=== PATIENT | female | born 1930 | race Caucasian/White ===

== ENCOUNTER → 2017-02-10 | Outpatient (CLI) | payer MEDICARE, OTHER ==
[~2017-02-10] MED LIST: CALC-652 PO; CIPR-151 PO; CITA-50 PO; FERR1TAB86 PO; FURO40SO2 PO; HYDR-783 PO; LEVO25TA51 PO; METO100T93 PO; POTA10TA93 PO; PRED-214 PO; SPIR25TA69 PO; VITAMIN D PO; WARF1TAB PO
[2017-02-10 18:09] LABS: BLOOD, URINE 1+ (NEGATIVE); COLOR,URINE YELLOW (YELLOW); LEUKOCYTE ESTERASE ,URINE NEGATIVE (NEGATIVE); NITRITE,URINE NEGATIVE (NEGATIVE); UROBILINOGEN,URINE 0.2 EU/DL (NORMAL)
[2017-02-10 18:21] LABS: BACTERIA,URINE NONE SEEN (NEGATIVE); RBC,URINE 0-1 /HPF (0-3); WBC,URINE 0-1 /HPF (0-5)
[2017-02-10 18:22] LABS: SQUAMOUS EPITHELIAL CELL,UR NONE SEEN
== END ==
LOC: LABN.KB 18:03
PROVIDERS: ATTEND Nurse Practitioner
DX: N39.0 Urinary tract infection, site not specified (principal)
CPT/HCPCS: 81001; 87086